=== PATIENT | female | born 1930 | race African-American/Black ===

== ENCOUNTER 2018-09-28 20:02 | Emergency (ER) | payer OTHER | END 2018-09-28 23:12 | disposition home or self-care (01) | LOC: JER 20:02 ==

== ENCOUNTER 2019-04-29 00:11 | Inpatient (IN) | payer OTHER ==
--- NOTE | 2019-04-29 00:23 | PDOC ---
History of Present Illness - General Stated Complaint: RT HIP PAIN Time Seen by Provider: 04/29/19 00:23 - History of Present Illness Initial Comments: 04/29/19 00:24 88 year old female with past medical history significant for CAD s/p stent, HTN and arthritis (to multiple joints), colostomy bag who presents with L thigh and hip pain that started this AM when she woke up the patient reports that she took tramadol this AM and she felt better. However the pain worsened prior to arrival. She denies any back pain, back trauma, denies shooting like pain to the legs. She has no weakness, numbness or tingling. ROS GENERAL/CONSTITUTIONAL: No fever or chills. No weakness. HEAD, EYES, EARS, NOSE AND THROAT: No sore throat. CARDIOVASCULAR: No chest pain or shortness of breath RESPIRATORY: No cough, wheezing, or hemoptysis. GASTROINTESTINAL: No nausea, vomiting, diarrhea or constipation. GENITOURINARY: No dysuria, frequency, or change in urination. MUSCULOSKELETAL: + joint or muscle swelling or pain. No neck or back pain. SKIN: No rash NEUROLOGIC: No headache, vertigo, loss of consciousness, or change in strength/ sensation. PE GENERAL: Awake, alert, and fully oriented, in no acute distress HEAD: No signs of trauma, normocephalic, atraumatic EYES: EOMI, sclera anicteric, conjunctiva clear ENT: oropharynx clear without exudates. Moist mucosa NECK: Normal ROM, supple LUNGS: No distress, speaks full sentences, clear to auscultation bilaterally HEART: Regular rate and rhythm, normal S1 and S2, no murmurs, rubs or gallops, peripheral pulses normal and equal bilaterally. ABDOMEN: Soft, nontender, No guarding, no rebound. No masses EXTREMITIES : Normal inspection, + L hip tenderness to palpation, worse with ranging NEUROLOGICAL: Cranial nerves II through XII grossly intact. Normal speech, no focal sensorimotor deficits SKIN: Warm, Dry, normal turgor, no rashes or lesions noted MDM DDX including but not limited to: r/o fx vs dislocation ED Course: patient with L hip pain morphine dosed labs wnl CT pelvis - osteoarthritis of the hips, no acute fx Alaina Myles, PGY2 Emergency Medicine Past History - Past Medical History Allergies/Adverse Reactions: Allergies Allergy/AdvReac Type Severity Reaction Status Date / Time No Known Allergies Allergy Verified 03/17/17 17:45 Home Medications: Ambulatory Orders Aspirin [Ecotrin] 81 mg PO DAILY 08/21/15 Furosemide [Lasix -] 40 mg PO DAILY 08/21/15 Lisinopril [Prinivil] 20 mg PO DAILY 08/21/15 Omeprazole [Prilosec] 20 mg PO DAILY 08/21/15 Ondansetron [Zofran *Odt*] 4 mg SL PRN PRN #14 od.tablet 08/21/15 Tramadol HCl/Acetaminophen [Tramadol-Acetaminophn 37.5-325] 1 each PO QID PRN Pantoprazole Sodium [Protonix] 40 mg PO DAILY #30 tablet. 12/16/15 Escitalopram Oxalate [Lexapro -] 5 mg PO DAILY 09/28/18 Lidocaine 5% Patch [Lidoderm Patch -] 1 patch TP DAILY #30 patch 09/28/18 Anemia: No Asthma: No Cancer: No Cardiac Disorders: Yes CVA: No COPD: No CHF: No Dementia: No Diabetes: Yes GI Disorders: Yes (COLOSTOMY D/T CHILDBIRTH YEARS AGO.) Disorders: No HTN: Yes Hypercholesterolemia: Yes Liver Disease: No Seizures: No Thyroid Disease: No - Surgical History Abdominal Surgery: Yes (COLOSTOMY.) Appendectomy: No Cardiac Surgery: Yes (STENT.) Cholecystectomy: No Lung Surgery: No Neurologic Surgery: No Orthopedic Surgery: No - Psycho Social/Smoking Cessation Hx Smoking History: Never smoked Have you smoked in the past 12 months: No Hx Alcohol Use: No Drug/Substance Use Hx: No Substance Use Type: None Hx Substance Use Treatment: No ED Treatment Course - LABORATORY CBC & Chemistry Diagram: 04/29/19 01:20 04/29/19 01:20 Discharge - Follow up/Referral Referrals: Sabino Garzon MD [Primary Care Provider] - - Patient Discharge Instructions - Post Discharge Activity
--- NOTE | 2019-04-29 00:25 | PDOC ---
Attending Attestation - Resident Resident Name: Alaina Myles - ED Attending Attestation I have performed the following: I have examined & evaluated the patient, The case was reviewed & discussed with the resident, I agree w/resident's findings & plan - HPI HPI: 04/29/19 01:01 see resident hpi - Physicial Exam PE: 04/29/19 01:01 agree with resident exam - Medical Decision Making 04/29/19 01:01 88-year-old female with history of lumbar disease now with severe atraumatic right hip pain radiating down the leg Plan for opiate analgesics CT scan of the lumbar spine and pelvis Will admit pending results for further evaluation by physical therapy due to inability to ambulate
[2019-04-29] MEDS ORDERED: morphine CARPU-JECT 2 MG/1 ML DISP.SYRIN SQ ONE (00:31)
[2019-04-29] MEDS ORDERED: MORPHINE SULFATE 2 MG/ML VIAL ONE ×3 (00:58→09:37)
[2019-04-29] MEDS ORDERED: LIDOCAINE 5% TOPICAL PATCH TP ONE (01:03)
[2019-04-29] MEDS ORDERED: morphine CARPU-JECT 2 MG/1 ML DISP.SYRIN IVPUSH ONE (01:25)
[2019-04-29 01:30] LABS: BASO % 0.7 % (0-2.0); EOS % 1.2 % (0-4.5); HEMATOCRIT 37.8 % (32.4-45.2); HEMOGLOBIN 12.6 GM/dL (10.7-15.3); LYMPH % 28.9 % (8-40); MCH 28.1 pg (25.7-33.7); MCHC 33.3 g/dl (32.0-36.0); MEAN CELL VOLUME 84.5 fl (80-96); MEAN PLT VOLUME 7.9 fl (7.5-11.1); MONO % 9.9 % (3.8-10.2); NEUT % 59.3 % (42.8-82.8); PLATELET COUNT 261 K/MM3 (134-434); RBC 4.47 M/mm3 (3.60-5.2); RDW 14.2 % (11.6-15.6); WHITE BLOOD COUNT 8.6 K/mm3 (4.0-10.0)
[2019-04-29 01:55] LABS: ALBUMIN 3.4 g/dl (3.4-5.0); BILIRUBIN,TOTAL 0.4 mg/dL (0.2-1); BLOOD UREA NITROGEN 16.5 mg/dL (7-18); CREATININE 1.1 mg/dL (0.55-1.3); POTASSIUM 4.6 mmol/L (3.5-5.1); TOT PROT 7.5 g/dl (6.4-8.2)
[2019-04-29] MEDS ORDERED: traMADol HCL 50 MG TABLET PO ONE (04:21)
[2019-04-29] MEDS ORDERED: traMADol HCL 50 MG TABLET ONE (04:43)
[2019-04-29] MEDS ORDERED: LIDOCAINE 5% TOPICAL PATCH ONE (06:53)
[2019-04-29] MEDS ORDERED: morphine CARPU-JECT 2 MG/1 ML DISP.SYRIN IVPUSH PRN (09:31)
[2019-04-29] MEDS: LIDOCAINE 5% TOPICAL PATCH TP SCH (09:47)
[2019-04-29] MEDS ORDERED: ASPIRIN 81 MG CHEWABLE TABLETS ONE (10:43)
[2019-04-29] MEDS ORDERED: LISINOPRIL 20 MG TABLET (FP) ONE (10:43)
[2019-04-29] MEDS ORDERED: ESCITALOPRAM OXALATE 10 MG TABLET (FP) ONE (10:43)
[2019-04-29] MEDS ORDERED: HEPARIN NA (PORCINE) 5,000 UNITS/ML 1ML VIAL ONE (10:43)
[2019-04-29] MEDS ORDERED: FUROSEMIDE 40 MG TABLET (FP) ONE (10:43)
[2019-04-29] MEDS ORDERED: PANTOPRAZOLE 40 MG TABLET (FP) ONE (10:44)
[2019-04-29] MEDS: ASPIRIN COATED 81 MG TABLET.EC PO SCH (10:50)
[2019-04-29] MEDS: ESCITALOPRAM OXALATE 10 MG TABLET (FP) PO SCH (10:50)
[2019-04-29] MEDS: HEPARIN NA (PORCINE) 5,000 UNITS/ML 1ML VIAL SQ SCH ×2 (10:50→22:31)
[2019-04-29] MEDS: FUROSEMIDE 40 MG TABLET (FP) PO SCH (10:50)
[2019-04-29] MEDS: PANTOPRAZOLE 40 MG TABLET (FP) PO SCH (10:51)
[2019-04-29] MEDS: LISINOPRIL 20 MG TABLET (FP) PO SCH (10:51)
--- NOTE | 2019-04-29 11:19 | EKG ---
Test Reason : Blood Pressure : / mmHG Vent. Rate : 058 BPM Atrial Rate : 058 BPM P-R Int : 138 ms QRS Dur : 068 ms QT Int : 436 ms P-R-T Axes : 000 005 029 degrees QTc Int : 428 ms SINUS BRADYCARDIA OTHERWISE NORMAL ECG WHEN COMPARED WITH ECG OF 15-DEC-2015 23:13, NO SIGNIFICANT CHANGE WAS FOUND Confirmed by DEL VIEYRA MD ([id number]) on 04/29/2019 11:19:40 AM Referred By: Confirmed By:DEL VIEYRA MD
[2019-04-29 13:16] VITALS: BMI 35.9
--- NOTE | 2019-04-29 13:52 | CON.ORTH ---
Consult Reason for Consultation:: LBP, right hip pain - Past Medical History Cardio/Vascular: Yes: CAD, HTN ...: No - Past Surgical History Past Surgical History: Yes: Colostomy - Alcohol/Substance Use Hx Alcohol Use: No - Smoking History Smoking history: Never smoked Have you smoked in the past 12 months: No Home Medications - Allergies Allergies/Adverse Reactions: Allergies Allergy/AdvReac Type Severity Reaction Status Date / Time No Known Allergies Allergy Verified 03/17/17 17:45 - Home Medications Home Medications: Ambulatory Orders Aspirin [Ecotrin] 81 mg PO DAILY 08/21/15 Furosemide [Lasix -] 40 mg PO DAILY 08/21/15 Lisinopril [Prinivil] 20 mg PO DAILY 08/21/15 Omeprazole [Prilosec] 20 mg PO DAILY 08/21/15 Ondansetron [Zofran *Odt*] 4 mg SL PRN PRN #14 od.tablet 08/21/15 Tramadol HCl/Acetaminophen [Tramadol-Acetaminophn 37.5-325] 1 each PO QID PRN Pantoprazole Sodium [Protonix] 40 mg PO DAILY #30 tablet. 12/16/15 Lidocaine 5% Patch [Lidoderm Patch -] 1 patch TP DAILY #30 patch 09/28/18 Physical Exam for Ortho Vital Signs: Vital Signs Temperature 97.4 F L 04/29/19 12:58 Pulse Rate 62 04/29/19 12:58 Respiratory Rate 20 04/29/19 12:58 Blood Pressure 138/66 04/29/19 12:58 O2 Sat by Pulse Oximetry (%) 98 04/29/19 06:58 Labs: CBC, BMP 04/29/19 01:20 04/29/19 01:20 - Lower Extremity Hip: Yes: Right, Decreased ROM, Pain, Swelling, Other (+ ttp LS spine, equal limb lengths, + slr, nvi) Imaging - Results X-ray: Image Reviewed Cat Scan: Report Reviewed, Image Reviewed Assessment/Plan 88 year old female with past medical history significant for CAD s/p stent, HTN and arthritis (to multiple joints), colostomy bag who presents with right LB, thigh and hip pain that started 1 day ago. She states that she was in the kitchen when she had a sudden onset of pain in her lower back that radiated down her right leg to her foot. Pt denies any injury or trauma. Has h/o LS issues. c/o pain radiating down right LE and numbness into her toes. Denies any bowel/bladder dysfunction. a/p LS multi-level central canal stenosis, L4-5 spondylolisthesis, right hip djd d/w with pt and family in detail appears more LS spine in nature recommend neurosurgery consult PT, wbat pain control right hip has severe grade 4 djd, would require THR but at this time pain more specific to LS spine d/w Dr. Gutierrez
[2019-04-29] MEDS: MORPHINE SULFATE 2 MG/ML VIAL IVPUSH PRN (15:52)
--- NOTE | 2019-04-29 19:13 | HP ---
Admitting History and Physical - Admission History of Present Illness: Pt is a 88 year old female with PMH significant for CAD s/p stent, HTN, chronic lower back pain, GERD and arthritis (to multiple joints). Pt presented to the ER with lower back pain wc radiated to rt hip and down rt leg started since am. She states that she was in the kitchen when she had a sudden onset of pain in her lower back that radiated down her right leg to her foot. Pt denies any injury or trauma. Has h/o LS issues. c/o pain radiating down right LE and numbness into her toes. Denies any bowel/bladder dysfunction. In ER pt had ct scan LS spine wc showed multi-level central canal stenosis, L4-5 spondylolisthesis, right hip djd. - Past Medical History Cardiovascular: Yes: CAD, HTN Gastrointestinal: Yes: GERD ...: No Musculoskeletal: Yes: Osteoarthritis - Past Surgical History Past Surgical History: Yes: Colostomy - Smoking History Smoking history: Never smoked Have you smoked in the past 12 months: No - Alcohol/Substance Use Hx Alcohol Use: No Home Medications - Allergies Allergies/Adverse Reactions: Allergies Allergy/AdvReac Type Severity Reaction Status Date / Time No Known Allergies Allergy Verified 03/17/17 17:45 - Home Medications Home Medications: Ambulatory Orders Aspirin [Ecotrin] 81 mg PO DAILY 08/21/15 Furosemide [Lasix -] 40 mg PO DAILY 08/21/15 Lisinopril [Prinivil] 20 mg PO DAILY 08/21/15 Omeprazole [Prilosec] 20 mg PO DAILY 08/21/15 Ondansetron [Zofran *Odt*] 4 mg SL PRN PRN #14 od.tablet 08/21/15 Tramadol HCl/Acetaminophen [Tramadol-Acetaminophn 37.5-325] 1 each PO QID PRN Pantoprazole Sodium [Protonix] 40 mg PO DAILY #30 tablet. 12/16/15 Lidocaine 5% Patch [Lidoderm Patch -] 1 patch TP DAILY #30 patch 09/28/18 Family Medical History Family History: Unremarkable Review of Systems - Review of Systems Constitutional: reports: No Symptoms Eyes: reports: No Symptoms HENT: reports: No Symptoms Neck: reports: No Symptoms Cardiovascular: reports: Other Respiratory: reports: No Symptoms Gastrointestinal: reports: No Symptoms Musculoskeletal: reports: Back Pain, Extremity Pain, Joint Pain Physical Examination Vital Signs: Vital Signs Temperature 97.4 F L 04/29/19 12:58 Pulse Rate 62 04/29/19 12:58 Respiratory Rate 20 04/29/19 12:58 Blood Pressure 138/66 04/29/19 12:58 O2 Sat by Pulse Oximetry (%) 98 04/29/19 06:58 Constitutional: Yes: Well Nourished Eyes: Yes: WNL HENT: Yes: WNL Neck: Yes: WNL, Supple Cardiovascular: Yes: WNL, Regular Rate and Rhythm Respiratory: Yes: WNL, Regular, CTA Bilaterally Gastrointestinal: Yes: WNL, Normal Bowel Sounds, Soft, Abdomen, Obese, Other ((+ ) colostomy) Labs: CBC, BMP 04/29/19 01:20 04/29/19 01:20 Problem List - Problems (1) Intractable back pain Assessment/Plan: Cont pain meds NSG/pain management Consult PT eval Code(s): M54.9 - DORSALGIA, UNSPECIFIED (2) GERD (gastroesophageal reflux disease) Assessment/Plan: Cont protonix Code(s): K21.9 - GASTRO-ESOPHAGEAL REFLUX DISEASE WITHOUT ESOPHAGITIS (3) Degenerative lumbar spinal stenosis Code(s): M48.061 - SPINAL STENOSIS, LUMBAR REGION WITHOUT NEUROGENIC MATEO (4) HTN (hypertension) Assessment/Plan: BP stable Cont asa/lasix Code(s): I10 - ESSENTIAL (PRIMARY) HYPERTENSION (5) Osteoarthritis Code(s): M19.90 - UNSPECIFIED OSTEOARTHRITIS, UNSPECIFIED SITE (6) CAD (coronary artery disease) Code(s): I25.10 - ATHSCL HEART DISEASE OF [place] CORONARY ARTERY W/O ANG PCTRS
[2019-04-29] MEDS ORDERED: MORPHINE SULFATE 2 MG/ML VIAL IVPUSH ONE (20:15)
[2019-04-29] MEDS ORDERED: PT OWN MED DRAWER 7, Y5N ONE (22:09)
[2019-04-29] MEDS: CYCLOBENZAPRINE HCL 5 MG TABLET PO SCH (22:31)
[2019-04-29] MEDS: LIDOCAINE PATCH REMOVAL MC SCH (22:44)
[2019-04-30] MEDS: MORPHINE SULFATE 2 MG/ML VIAL IVPUSH PRN ×2 (02:59→10:00)
[2019-04-30] MEDS: CYCLOBENZAPRINE HCL 5 MG TABLET PO SCH ×3 (06:57→22:12)
[2019-04-30 07:43] LABS: BASO % 1.1 % (0-2.0); EOS % 1.8 % (0-4.5); HEMATOCRIT 36.9 % (32.4-45.2); HEMOGLOBIN 12.7 GM/dL (10.7-15.3); LYMPH % 40.2 % (8-40); MCH 28.6 pg (25.7-33.7); MCHC 34.3 g/dl (32.0-36.0); MEAN CELL VOLUME 83.2 fl (80-96); MEAN PLT VOLUME 7.9 fl (7.5-11.1); MONO % 9.7 % (3.8-10.2); NEUT % 47.2 % (42.8-82.8); PLATELET COUNT 245 K/MM3 (134-434); RBC 4.43 M/mm3 (3.60-5.2); RDW 14.3 % (11.6-15.6); WHITE BLOOD COUNT 7.1 K/mm3 (4.0-10.0)
[2019-04-30 08:15] LABS: ALBUMIN 3.1 g/dl (3.4-5.0); BILIRUBIN,TOTAL 0.5 mg/dL (0.2-1); BLOOD UREA NITROGEN 13.2 mg/dL (7-18); CALCIUM 8.5 mg/dL (8.5-10.1)
[2019-04-30] MEDS: PANTOPRAZOLE 40 MG TABLET (FP) PO SCH (09:57)
[2019-04-30] MEDS: LISINOPRIL 20 MG TABLET (FP) PO SCH (09:57)
[2019-04-30] MEDS: ESCITALOPRAM OXALATE 10 MG TABLET (FP) PO SCH (09:58)
[2019-04-30] MEDS: FUROSEMIDE 40 MG TABLET (FP) PO SCH (09:59)
[2019-04-30] MEDS: HEPARIN NA (PORCINE) 5,000 UNITS/ML 1ML VIAL SQ SCH ×2 (09:59→22:12)
[2019-04-30] MEDS: LIDOCAINE 5% TOPICAL PATCH TP SCH (09:59)
[2019-04-30] MEDS: ASPIRIN COATED 81 MG TABLET.EC PO SCH (10:14)
--- NOTE | 2019-04-30 14:09 | CONSULT ---
Consult - text type - Consultation Consultation Note: NEUROSURGERY CONSULTATION Brandee Davila is an 88 year old female with a long history of back and leg pain who experienced an exacerbation on Monday morning without any significant associated traumatic incident. The patient is complaining of low back and Right gluteal pain which radiates down her Right leg. She is unable to bear weight or sit upright without increasing her pain. Evaluation of her hips suggests some degree of osteoarthritis, however, her pain appears to be of a primarily spinal etiology. Lumbar CT demonstrates multilevel degenerative changes with facet and ligamentum flavum hypertrophy and disc bulging resulting in Lumbar degenerative scoliosis with spondylosis and Grade 2 spondylolisthesis of L4 on L5 with a high slip angle at L5S1. There is suggestion of acute disc herniation at L45, however, this would be best evaluated with MRI. There are no bowel and bladder changes. This patient may benefit from Lumbar CESAR as an initial treatment. If her symptoms persist despite this, MRI Lumbar without contrast may be considered. Given her advanced age, surgical intervention would be restricted to failure to respond to a conservative regimen or progression to bowel/bladder dysfunction or intractable pain. Most likely focal decompression of the acute nerve root compression may be considered prior to multilevel reconstructive options. Will follow.
[2019-04-30] MEDS ORDERED: FENTANYL PATCH WASTE TD PRN (16:26)
[2019-04-30] MEDS: fentaNYL 25mcg/hr PATCH.TD72 TD SCH (17:03)
--- NOTE | 2019-04-30 18:41 | PN ---
Progress Note, Physician History of Present Illness: Pt unable to ambulate due to pain - Current Medication List Current Medications: Active Medications Aspirin (Ecotrin -) 81 mg PO DAILY [facility] Last Admin: 04/30/19 10:14 Dose: 81 mg Cyclobenzaprine HCl (Cyclobenzaprine Hcl) 5 mg PO TID [facility] Last Admin: 04/30/19 14:06 Dose: 5 mg Escitalopram Oxalate (Lexapro -) 5 mg PO DAILY [facility] Last Admin: 04/30/19 09:58 Dose: 5 mg Fentanyl (Duragesic 25mcg Patch -) 1 patch TD Q72H [facility] Last Admin: 04/30/19 17:03 Dose: 1 patch Furosemide (Lasix -) 40 mg PO DAILY [facility] Last Admin: 04/30/19 09:59 Dose: 40 mg Heparin Sodium (Porcine) (Heparin -) 5,000 unit SQ BID [facility] Last Admin: 04/30/19 09:59 Dose: 5,000 unit Lidocaine (Lidoderm Patch -) 1 patch TP DAILY [facility] Last Admin: 04/30/19 09:59 Dose: 1 patch Lisinopril (Prinivil) 20 mg PO DAILY [facility] Last Admin: 04/30/19 09:57 Dose: 20 mg Miscellaneous (Lidoderm Patch Removal) 1 each MC DAILY@2200 [facility] Last Admin: 04/29/19 22:44 Dose: 1 each Miscellaneous (Duragesic Patch Waste) 1 each TD PRN PRN PRN Reason: WASTE Pantoprazole Sodium (Protonix -) 40 mg PO DAILY [facility] Last Admin: 04/30/19 09:57 Dose: 40 mg Tramadol HCl (Ultram -) 50 mg PO Q6H PRN PRN Reason: PAIN LEVEL 6-10 - Objective Vital Signs: Vital Signs Temperature 98.1 F 04/30/19 05:45 Pulse Rate 72 04/30/19 09:00 Respiratory Rate 18 04/30/19 09:00 Blood Pressure 120/68 04/30/19 09:00 O2 Sat by Pulse Oximetry (%) 98 04/30/19 05:00 Constitutional: Yes: Well Nourished, Obese HENT: Yes: WNL Neck: Yes: WNL, Supple Cardiovascular: Yes: WNL, Regular Rate and Rhythm Respiratory: Yes: WNL, Regular, CTA Bilaterally Gastrointestinal: Yes: WNL, Normal Bowel Sounds, Soft, Abdomen, Obese, Other ((+ ) colostomy) Edema: No Labs: CBC, BMP 04/30/19 06:42 04/30/19 06:42 Problem List - Problems (1) Intractable back pain Assessment/Plan: Cont pain meds NSG consult noted Pain management Consult Possible epidural injection d/w pt and family PT eval Code(s): M54.9 - DORSALGIA, UNSPECIFIED (2) Degenerative lumbar spinal stenosis Code(s): M48.061 - SPINAL STENOSIS, LUMBAR REGION WITHOUT NEUROGENIC AMTEO (3) GERD (gastroesophageal reflux disease) Assessment/Plan: Cont protonix Code(s): K21.9 - GASTRO-ESOPHAGEAL REFLUX DISEASE WITHOUT ESOPHAGITIS (4) HTN (hypertension) Assessment/Plan: BP stable Cont asa/lasix Code(s): I10 - ESSENTIAL (PRIMARY) HYPERTENSION (5) Osteoarthritis Code(s): M19.90 - UNSPECIFIED OSTEOARTHRITIS, UNSPECIFIED SITE (6) CAD (coronary artery disease) Code(s): I25.10 - ATHSCL HEART DISEASE OF [place] CORONARY ARTERY W/O ANG PCTRS
[2019-04-30] MEDS: traMADol HCL 50 MG TABLET PO PRN (18:52)
[2019-04-30] MEDS: LIDOCAINE PATCH REMOVAL MC SCH (22:12)
[2019-05-01] MEDS: traMADol HCL 50 MG TABLET PO PRN ×4 (00:43→20:22)
[2019-05-01] MEDS: CYCLOBENZAPRINE HCL 5 MG TABLET PO SCH ×3 (05:46→22:04)
[2019-05-01] MEDS: LISINOPRIL 20 MG TABLET (FP) PO SCH (10:29)
[2019-05-01] MEDS: FUROSEMIDE 40 MG TABLET (FP) PO SCH (10:30)
[2019-05-01] MEDS: ASPIRIN COATED 81 MG TABLET.EC PO SCH (10:30)
[2019-05-01] MEDS: HEPARIN NA (PORCINE) 5,000 UNITS/ML 1ML VIAL SQ SCH (10:30)
[2019-05-01] MEDS: ESCITALOPRAM OXALATE 10 MG TABLET (FP) PO SCH (10:30)
[2019-05-01] MEDS: PANTOPRAZOLE 40 MG TABLET (FP) PO SCH (10:30)
[2019-05-01] MEDS: LIDOCAINE 5% TOPICAL PATCH TP SCH (10:31)
--- NOTE | 2019-05-01 19:19 | PN ---
Progress Note, Physician History of Present Illness: Pt still w/ intractable back pain - Current Medication List Current Medications: Active Medications Aspirin (Ecotrin -) 81 mg PO DAILY [facility] Last Admin: 05/01/19 10:30 Dose: 81 mg Cyclobenzaprine HCl (Cyclobenzaprine Hcl) 5 mg PO TID [facility] Last Admin: 05/01/19 13:52 Dose: 5 mg Escitalopram Oxalate (Lexapro -) 5 mg PO DAILY [facility] Last Admin: 05/01/19 10:30 Dose: 5 mg Fentanyl (Duragesic 25mcg Patch -) 1 patch TD Q72H [facility] Last Admin: 04/30/19 17:03 Dose: 1 patch Furosemide (Lasix -) 40 mg PO DAILY [facility] Last Admin: 05/01/19 10:30 Dose: 40 mg Heparin Sodium (Porcine) (Heparin -) 5,000 unit SQ BID [facility] Last Admin: 05/01/19 10:30 Dose: 5,000 unit Lidocaine (Lidoderm Patch -) 1 patch TP DAILY [facility] Last Admin: 05/01/19 10:31 Dose: 1 patch Lisinopril (Prinivil) 20 mg PO DAILY [facility] Last Admin: 05/01/19 10:29 Dose: 20 mg Miscellaneous (Lidoderm Patch Removal) 1 each MC DAILY@2200 [facility] Last Admin: 04/30/19 22:12 Dose: 1 each Miscellaneous (Duragesic Patch Waste) 1 each TD PRN PRN PRN Reason: WASTE Pantoprazole Sodium (Protonix -) 40 mg PO DAILY [facility] Last Admin: 05/01/19 10:30 Dose: 40 mg Tramadol HCl (Ultram -) 50 mg PO Q6H PRN PRN Reason: PAIN LEVEL 6-10 Last Admin: 05/01/19 13:52 Dose: 50 mg - Objective Vital Signs: Vital Signs Temperature 97.9 F 05/01/19 14:08 Pulse Rate 76 05/01/19 14:08 Respiratory Rate 18 05/01/19 05:40 Blood Pressure 120/74 05/01/19 14:08 O2 Sat by Pulse Oximetry (%) 98 05/01/19 13:00 Neck: Yes: WNL, Supple Cardiovascular: Yes: WNL, Regular Rate and Rhythm Respiratory: Yes: WNL, Regular, CTA Bilaterally Gastrointestinal: Yes: WNL, Normal Bowel Sounds, Soft Labs: CBC, BMP 04/30/19 06:42 04/30/19 06:42 Problem List - Problems (1) Intractable back pain Assessment/Plan: Pain meds being adjusted Fentanyl added Cont tramadol/flexeril/lidocaine patch NSG consult noted Pain management consult ?Epidural injection Pt unable to ambulate due to pain Cont PT. Code(s): M54.9 - DORSALGIA, UNSPECIFIED (2) HTN (hypertension) Assessment/Plan: BP stable Cont asa/lasix Code(s): I10 - ESSENTIAL (PRIMARY) HYPERTENSION (3) Chronic congestive heart failure Assessment/Plan: Cont lasix Code(s): I50.9 - HEART FAILURE, UNSPECIFIED (4) Osteoarthritis Code(s): M19.90 - UNSPECIFIED OSTEOARTHRITIS, UNSPECIFIED SITE
--- NOTE | 2019-05-01 20:12 | CONSULT ---
Consult Consult Specialty:: Pain Management Referred by:: Dr. Smith Reason for Consultation:: Back pain - History of Present Illness Chief Complaint: Back pain radiating to RT leg History of Present Illness: 88 yr old female with acute onset of Low Back pain radiatig to Rt leg with numbness and tingling. She has difficulty n ambulation and doing ADLs . She was evaluated by spine surgeon. He pain is 8/10 sleep - inadequate. No bowel/bladder issues. MRI - reviewed - History Source History Provided By: Patient Limitations to Obtaining History: No Limitations - Past Medical History Cardio/Vascular: Yes: CAD, HTN ...: No Musculoskeletal: Yes: Chronic low back pain, Other (multiple joint OA ) - Past Surgical History Past Surgical History: Yes: Cholecystectomy, Colostomy, Stent - Alcohol/Substance Use Hx Alcohol Use: No - Smoking History Smoking history: Never smoked Have you smoked in the past 12 months: No Home Medications - Allergies Allergies/Adverse Reactions: Allergies Allergy/AdvReac Type Severity Reaction Status Date / Time No Known Allergies Allergy Verified 03/17/17 17:45 - Home Medications Home Medications: Ambulatory Orders Aspirin [Ecotrin] 81 mg PO DAILY 08/21/15 Furosemide [Lasix -] 40 mg PO DAILY 08/21/15 Lisinopril [Prinivil] 20 mg PO DAILY 08/21/15 Omeprazole [Prilosec] 20 mg PO DAILY 08/21/15 Ondansetron [Zofran *Odt*] 4 mg SL PRN PRN #14 od.tablet 08/21/15 Tramadol HCl/Acetaminophen [Tramadol-Acetaminophn 37.5-325] 1 each PO QID PRN Pantoprazole Sodium [Protonix] 40 mg PO DAILY #30 tablet. 12/16/15 Lidocaine 5% Patch [Lidoderm Patch -] 1 patch TP DAILY #30 patch 09/28/18 Review of Systems - Review of Systems Constitutional: reports: No Symptoms Eyes: reports: No Symptoms HENT: reports: No Symptoms Neck: reports: No Symptoms Cardiovascular: reports: No Symptoms Respiratory: reports: No Symptoms Gastrointestinal: reports: No Symptoms Genitourinary: reports: No Symptoms Musculoskeletal: reports: Back Pain, Joint Pain Integumentary: reports: No Symptoms Neurological: reports: No Symptoms, Numbness, Parasthesia Endocrine: reports: No Symptoms Hematology/Lymphatic: reports: No Symptoms Psychiatric: reports: No Symptoms Pain Intensity: 8 Physical Exam Vital Signs: Vital Signs Temperature 97.9 F 05/01/19 14:08 Pulse Rate 76 05/01/19 14:08 Respiratory Rate 18 05/01/19 05:40 Blood Pressure 120/74 05/01/19 14:08 O2 Sat by Pulse Oximetry (%) 98 05/01/19 13:00 Constitutional: Yes: Well Nourished Eyes: Yes: WNL HENT: Yes: WNL Neck: Yes: WNL Respiratory: Yes: WNL Gastrointestinal: Yes: WNL Musculoskeletal: Yes: Back Pain, Muscle Pain, Other (radicular pain) Extremities: Yes: WNL Edema: No Neurological: Yes: WNL ...Motor Strength: WNL Labs: CBC, BMP 04/30/19 06:42 04/30/19 06:42 Current Medications Generic Name Dose Route Start Last Admin Trade Name Freq PRN Reason Stop Dose Admin Aspirin 81 mg 04/29/19 10:00 05/01/19 10:30 Ecotrin - PO 81 mg DAILY [facility] Administration Cyclobenzaprine HCl 5 mg 04/29/19 22:00 05/01/19 13:52 Cyclobenzaprine Hcl PO 5 mg TID [facility] Administration Escitalopram Oxalate 5 mg 04/29/19 10:00 05/01/19 10:30 Lexapro - PO 5 mg DAILY [facility] Administration Fentanyl 1 patch 04/30/19 16:30 04/30/19 17:03 Duragesic 25mcg Patch - TD 1 patch Q72H [facility] Administration Furosemide 40 mg 04/29/19 10:00 05/01/19 10:30 Lasix - PO 40 mg DAILY [facility] Administration Heparin Sodium (Porcine) 5,000 unit 04/29/19 10:00 05/01/19 10:30 Heparin - SQ 5,000 unit BID [facility] Administration Lidocaine 1 patch 04/29/19 10:00 05/01/19 10:31 Lidoderm Patch - TP 1 patch DAILY [facility] Administration Lisinopril 20 mg 04/29/19 10:00 05/01/19 10:29 Prinivil PO 20 mg DAILY [facility] Administration Miscellaneous 1 each 04/29/19 22:00 04/30/19 22:12 Lidoderm Patch Removal MC 1 each DAILY@2200 [facility] Administration Miscellaneous 1 each 04/30/19 16:26 Duragesic Patch Waste TD PRN PRN WASTE Pantoprazole Sodium 40 mg 04/29/19 10:00 05/01/19 10:30 Protonix - PO 40 mg DAILY [facility] Administration Tramadol HCl 50 mg 04/30/19 18:40 05/01/19 13:52 Ultram - PO 50 mg Q6H PRN Administration PAIN LEVEL 6-10 Imaging - Results Cat Scan: Report Reviewed Problem List - Problems (1) Degenerative lumbar spinal stenosis Assessment/Plan: 1. Discussed in detail with patient and Her grand daughter and answered all her questions. 1. continue current care 2. Hold Aspirin and Heparine 3. NPO from Midnight 4. Scheduled for Lumbar epidural and Facet injection on Right side. 5. Patient resume her medication and regualr diet after spinal procedure. 6. D/C Fentanyl patch at the time of discharge. Please call me if any questions at [phone] Thanks for your kind referral. Problems reviewed: Yes Code(s): M48.061 - SPINAL STENOSIS, LUMBAR REGION WITHOUT NEUROGENIC MATEO
[2019-05-01] MEDS: LIDOCAINE PATCH REMOVAL MC SCH (22:04)
[2019-05-02] MEDS: traMADol HCL 50 MG TABLET PO PRN ×2 (01:59→18:20)
[2019-05-02] MEDS: CYCLOBENZAPRINE HCL 5 MG TABLET PO SCH ×3 (05:42→22:33)
[2019-05-02] MEDS ORDERED: LIDOCAINE HCL 1%, 10 MG/ML (20ML VIAL) ONE (09:55)
[2019-05-02] MEDS ORDERED: BETAMET ACET/BETAMET NA PH 30 MG/5 ML VIAL ONE (09:56)
[2019-05-02] MEDS ORDERED: BUPIVACAINE HCL/PF 0.25% (2.5MG/ML) 10 ML VIAL ONE (09:56)
[2019-05-02] MEDS ORDERED: MIDAZOLAM HCL 2 MG/2 ML SINGLE DOSE VIAL ONE (10:14)
[2019-05-02] MEDS ORDERED: PROPOFOL 20 ML ONE (10:27)
[2019-05-02] MEDS ORDERED: LIDOCAINE HCL/PF 2% SDV 5ML VIAL ONE (10:27)
[2019-05-02] MEDS ORDERED: LIDOCAINE HCL 1%, 10 MG/ML (50 mL VIAL) IJ ONE (10:34)
[2019-05-02] MEDS ORDERED: BUPIVACAINE HCL/PF 0.25% (2.5MG/ML) 10 ML VIAL IJ ONE ×2 (10:38)
[2019-05-02] MEDS ORDERED: IOHEXOL 180 MG/1 ML ML IJ ONE ×3 (10:38)
[2019-05-02] MEDS ORDERED: BETAMET ACET/BETAMET NA PH 30 MG/5 ML VIAL IJ ONE ×2 (10:42)
[2019-05-02] MEDS: PANTOPRAZOLE 40 MG TABLET (FP) PO SCH (13:31)
[2019-05-02] MEDS: ASPIRIN COATED 81 MG TABLET.EC PO SCH (13:32)
[2019-05-02] MEDS: LISINOPRIL 20 MG TABLET (FP) PO SCH (13:32)
[2019-05-02] MEDS: LIDOCAINE 5% TOPICAL PATCH TP SCH (13:32)
[2019-05-02] MEDS: ESCITALOPRAM OXALATE 10 MG TABLET (FP) PO SCH (13:32)
[2019-05-02] MEDS: FUROSEMIDE 40 MG TABLET (FP) PO SCH (13:37)
[2019-05-02] MEDS: HEPARIN NA (PORCINE) 5,000 UNITS/ML 1ML VIAL SQ SCH (22:33)
[2019-05-02] MEDS: LIDOCAINE PATCH REMOVAL MC SCH (22:33)
--- NOTE | 2019-05-02 22:34 | PN ---
Progress Note, Physician History of Present Illness: Pt tolerated procedure - Current Medication List Current Medications: Active Medications Aspirin (Ecotrin -) 81 mg PO DAILY [facility] Last Admin: 05/02/19 13:32 Dose: 81 mg Cyclobenzaprine HCl (Cyclobenzaprine Hcl) 5 mg PO TID [facility] Last Admin: 05/02/19 16:02 Dose: 5 mg Escitalopram Oxalate (Lexapro -) 5 mg PO DAILY [facility] Last Admin: 05/02/19 13:32 Dose: 5 mg Fentanyl (Duragesic 25mcg Patch -) 1 patch TD Q72H [facility] Last Admin: 04/30/19 17:03 Dose: 1 patch Furosemide (Lasix -) 40 mg PO DAILY [facility] Last Admin: 05/02/19 13:37 Dose: Not Given Heparin Sodium (Porcine) (Heparin -) 5,000 unit SQ BID [facility] Last Admin: 05/01/19 10:30 Dose: 5,000 unit Lidocaine (Lidoderm Patch -) 1 patch TP DAILY [facility] Last Admin: 05/02/19 13:32 Dose: 1 patch Lisinopril (Prinivil) 20 mg PO DAILY [facility] Last Admin: 05/02/19 13:32 Dose: 20 mg Miscellaneous (Lidoderm Patch Removal) 1 each MC DAILY@2200 [facility] Last Admin: 05/01/19 22:04 Dose: 1 each Miscellaneous (Duragesic Patch Waste) 1 each TD PRN PRN PRN Reason: WASTE Pantoprazole Sodium (Protonix -) 40 mg PO DAILY [facility] Last Admin: 05/02/19 13:31 Dose: 40 mg Tramadol HCl (Ultram -) 50 mg PO Q6H PRN PRN Reason: PAIN LEVEL 6-10 Last Admin: 05/02/19 18:20 Dose: 50 mg - Objective Vital Signs: Vital Signs Temperature 98.9 F 05/02/19 22:19 Pulse Rate 78 05/02/19 22:19 Respiratory Rate 20 05/02/19 22:19 Blood Pressure 148/70 05/02/19 22:19 O2 Sat by Pulse Oximetry (%) 90 L 05/02/19 11:26 Neck: Yes: WNL, Supple Cardiovascular: Yes: WNL, Regular Rate and Rhythm Respiratory: Yes: WNL, Regular, CTA Bilaterally Gastrointestinal: Yes: WNL, Normal Bowel Sounds, Soft, Abdomen, Obese Labs: CBC, BMP 04/30/19 06:42 04/30/19 06:42 Problem List - Problems (1) Intractable back pain Assessment/Plan: Cont fenatanyl/tramadol/flexeril/lidocaine patch S/P epidural injection Cont PT May need Short term placement for rehab Code(s): M54.9 - DORSALGIA, UNSPECIFIED (2) HTN (hypertension) Assessment/Plan: BP stable Cont asa/lasix Code(s): I10 - ESSENTIAL (PRIMARY) HYPERTENSION (3) Chronic congestive heart failure Assessment/Plan: Cont lasix Code(s): I50.9 - HEART FAILURE, UNSPECIFIED (4) Osteoarthritis Code(s): M19.90 - UNSPECIFIED OSTEOARTHRITIS, UNSPECIFIED SITE
[2019-05-03] MEDS: CYCLOBENZAPRINE HCL 5 MG TABLET PO SCH ×3 (06:51→22:07)
[2019-05-03] MEDS: ESCITALOPRAM OXALATE 10 MG TABLET (FP) PO SCH (09:15)
[2019-05-03] MEDS: ASPIRIN COATED 81 MG TABLET.EC PO SCH (09:15)
[2019-05-03] MEDS: HEPARIN NA (PORCINE) 5,000 UNITS/ML 1ML VIAL SQ SCH ×2 (09:15→22:07)
[2019-05-03] MEDS: LIDOCAINE 5% TOPICAL PATCH TP SCH (09:16)
[2019-05-03] MEDS: FUROSEMIDE 40 MG TABLET (FP) PO SCH (09:16)
[2019-05-03] MEDS: PANTOPRAZOLE 40 MG TABLET (FP) PO SCH (09:16)
[2019-05-03] MEDS: traMADol HCL 50 MG TABLET PO PRN (09:16)
[2019-05-03] MEDS: LISINOPRIL 20 MG TABLET (FP) PO SCH (09:17)
[2019-05-03] MEDS ORDERED: KETOROLAC TROMETHAMINE 15 MG/ML VIAL IM ONE (15:45)
[2019-05-03] MEDS: fentaNYL 25mcg/hr PATCH.TD72 TD SCH (16:09)
[2019-05-03] MEDS ORDERED: LIDOCAINE HCL 2% (20ML MULTI-DOSE VIAL) INF ONE (18:30)
[2019-05-03] MEDS: LIDOCAINE PATCH REMOVAL MC SCH (22:08)
--- NOTE | 2019-05-03 23:30 | PN ---
Progress Note, Physician History of Present Illness: Pt tolerated procedure - Current Medication List Current Medications: Active Medications Aspirin (Ecotrin -) 81 mg PO DAILY [facility] Last Admin: 05/03/19 09:15 Dose: 81 mg Cyclobenzaprine HCl (Cyclobenzaprine Hcl) 5 mg PO TID [facility] Last Admin: 05/03/19 22:07 Dose: 5 mg Escitalopram Oxalate (Lexapro -) 5 mg PO DAILY [facility] Last Admin: 05/03/19 09:15 Dose: 5 mg Fentanyl (Duragesic 25mcg Patch -) 1 patch TD Q72H [facility] Last Admin: 05/03/19 16:09 Dose: 1 patch Furosemide (Lasix -) 40 mg PO DAILY [facility] Last Admin: 05/03/19 09:16 Dose: 40 mg Heparin Sodium (Porcine) (Heparin -) 5,000 unit SQ BID [facility] Last Admin: 05/03/19 22:07 Dose: 5,000 unit Lidocaine (Lidoderm Patch -) 1 patch TP DAILY [facility] Last Admin: 05/03/19 09:16 Dose: 1 patch Lisinopril (Prinivil) 20 mg PO DAILY [facility] Last Admin: 05/03/19 09:17 Dose: 20 mg Miscellaneous (Lidoderm Patch Removal) 1 each MC DAILY@2200 [facility] Last Admin: 05/03/19 22:08 Dose: 1 each Miscellaneous (Duragesic Patch Waste) 1 each TD PRN PRN PRN Reason: WASTE Last Admin: 05/03/19 16:20 Dose: 1 each Pantoprazole Sodium (Protonix -) 40 mg PO DAILY [facility] Last Admin: 05/03/19 09:16 Dose: 40 mg - Objective Vital Signs: Vital Signs Temperature 98.2 F 05/03/19 23:24 Pulse Rate 80 05/03/19 23:24 Respiratory Rate 20 05/03/19 23:24 Blood Pressure 144/79 05/03/19 23:24 O2 Sat by Pulse Oximetry (%) 95 05/03/19 09:00 Constitutional: Yes: Obese Neck: Yes: WNL, Supple Cardiovascular: Yes: WNL, Regular Rate and Rhythm Respiratory: Yes: WNL, Regular, CTA Bilaterally Gastrointestinal: Yes: WNL, Normal Bowel Sounds, Soft, Abdomen, Obese, Other ((+ ) colostomy) Edema: No Labs: CBC, BMP 04/30/19 06:42 04/30/19 06:42 Problem List - Problems (1) Intractable back pain Assessment/Plan: S/P epidural injection Cont fentanyl/lidocaine/tramadol/flexerilCont pain meds PT eval Code(s): M54.9 - DORSALGIA, UNSPECIFIED (2) HTN (hypertension) Assessment/Plan: BP stable Cont asa/lasix Code(s): I10 - ESSENTIAL (PRIMARY) HYPERTENSION (3) Chronic congestive heart failure Assessment/Plan: Cont lasix Code(s): I50.9 - HEART FAILURE, UNSPECIFIED (4) Osteoarthritis Code(s): M19.90 - UNSPECIFIED OSTEOARTHRITIS, UNSPECIFIED SITE (5) Degenerative lumbar spinal stenosis Code(s): M48.061 - SPINAL STENOSIS, LUMBAR REGION WITHOUT NEUROGENIC MATEO (6) GERD (gastroesophageal reflux disease) Assessment/Plan: Cont protonix Code(s): K21.9 - GASTRO-ESOPHAGEAL REFLUX DISEASE WITHOUT ESOPHAGITIS (7) CAD (coronary artery disease) Code(s): I25.10 - ATHSCL HEART DISEASE OF [place] CORONARY ARTERY W/O ANG PCTRS
[2019-05-04] MEDS: CYCLOBENZAPRINE HCL 5 MG TABLET PO SCH ×4 (06:20→21:23)
[2019-05-04 08:20] LABS: BASO % 0.1 % (0-2.0); EOS % 0.1 % (0-4.5); HEMATOCRIT 35.3 % (32.4-45.2); HEMOGLOBIN 12.3 GM/dL (10.7-15.3); LYMPH % 16.1 % (8-40); MCHC 34.7 g/dl (32.0-36.0); MEAN CELL VOLUME 83.5 fl (80-96); MEAN PLT VOLUME 8.4 fl (7.5-11.1); NEUT % 77.7 % (42.8-82.8); PLATELET COUNT 235 K/MM3 (134-434); RBC 4.23 M/mm3 (3.60-5.2); RDW 14.6 % (11.6-15.6); WHITE BLOOD COUNT 10.6 K/mm3 (4.0-10.0)
[2019-05-04 08:35] LABS: ALBUMIN 2.9 g/dl (3.4-5.0); BILIRUBIN,TOTAL 0.4 mg/dL (0.2-1); BLOOD UREA NITROGEN 56.1 mg/dL (7-18); CALCIUM 8.2 mg/dL (8.5-10.1); CREATININE 1.4 mg/dL (0.55-1.3); TOT PROT 6.5 g/dl (6.4-8.2)
[2019-05-04] MEDS: LISINOPRIL 20 MG TABLET (FP) PO SCH (10:09)
[2019-05-04] MEDS: ESCITALOPRAM OXALATE 10 MG TABLET (FP) PO SCH (10:09)
[2019-05-04] MEDS: FUROSEMIDE 40 MG TABLET (FP) PO SCH (10:09)
[2019-05-04] MEDS: ASPIRIN COATED 81 MG TABLET.EC PO SCH (10:09)
[2019-05-04] MEDS: HEPARIN NA (PORCINE) 5,000 UNITS/ML 1ML VIAL SQ SCH ×2 (10:10→21:23)
[2019-05-04] MEDS: LIDOCAINE 5% TOPICAL PATCH TP SCH (10:10)
[2019-05-04] MEDS: PANTOPRAZOLE 40 MG TABLET (FP) PO SCH (10:10)
--- NOTE | 2019-05-04 17:18 | PN ---
Progress Note (short form) - Note Progress Note: Pt seen and examined. In summary she is an 88 ear old female patient with a long history of intractable low back pain, with a recent excacerbation of the pain. No recent changes in her bowel or bladder habits. She is now being seen by Dr Gates, Pain Management, who gave her a lumbar epidural yesterday. She states she does feel a little better. Limited PE Overweight female. B/L LE are grossly NVI. Good active ROM at both hips, knees, feet, ankles, all toes. + pain with any motion of her LS spine, but in NAD. X-rays Show no acute bony pathology, + multilevel OA and central canal stenosis. CT Scan Confirms these radiographic findings. Pelvis shows no acute pathology, + OA both hips. Imp 88 yo F with [id number] intractable LBP, 1 day s/p lumbar epidural. Rec Con't under the care of Dr Gates P.T. if tolerated, WBAT, activities as tolerated. NTD orthopedically at this time.
[2019-05-04] MEDS: LIDOCAINE PATCH REMOVAL MC SCH (21:24)
--- NOTE | 2019-05-04 22:18 | PN ---
Progress Note, Physician History of Present Illness: Some improvement in lower back pain - Current Medication List Current Medications: Active Medications Aspirin (Ecotrin -) 81 mg PO DAILY [facility] Last Admin: 05/04/19 10:09 Dose: 81 mg Cyclobenzaprine HCl (Cyclobenzaprine Hcl) 5 mg PO TID [facility] Last Admin: 05/04/19 21:23 Dose: 5 mg Escitalopram Oxalate (Lexapro -) 5 mg PO DAILY [facility] Last Admin: 05/04/19 10:09 Dose: 5 mg Fentanyl (Duragesic 25mcg Patch -) 1 patch TD Q72H [facility] Last Admin: 05/03/19 16:09 Dose: 1 patch Furosemide (Lasix -) 40 mg PO DAILY [facility] Last Admin: 05/04/19 10:09 Dose: 40 mg Heparin Sodium (Porcine) (Heparin -) 5,000 unit SQ BID [facility] Last Admin: 05/04/19 21:23 Dose: 5,000 unit Lidocaine (Lidoderm Patch -) 1 patch TP DAILY [facility] Last Admin: 05/04/19 10:10 Dose: 1 patch Lisinopril (Prinivil) 20 mg PO DAILY [facility] Last Admin: 05/04/19 10:09 Dose: 20 mg Miscellaneous (Lidoderm Patch Removal) 1 each MC DAILY@2200 [facility] Last Admin: 05/04/19 21:24 Dose: 1 each Miscellaneous (Duragesic Patch Waste) 1 each TD PRN PRN PRN Reason: WASTE Last Admin: 05/03/19 16:20 Dose: 1 each Pantoprazole Sodium (Protonix -) 40 mg PO DAILY [facility] Last Admin: 05/04/19 10:10 Dose: 40 mg Tramadol HCl (Ultram -) 50 mg PO Q6H PRN PRN Reason: PAIN 6-10 - Objective Vital Signs: Vital Signs Temperature 97.7 F 05/04/19 22:02 Pulse Rate 61 05/04/19 22:02 Respiratory Rate 16 05/04/19 22:02 Blood Pressure 148/71 05/04/19 22:02 O2 Sat by Pulse Oximetry (%) 95 05/04/19 21:00 Neck: Yes: WNL, Supple Cardiovascular: Yes: WNL, Regular Rate and Rhythm Respiratory: Yes: WNL, Regular, CTA Bilaterally Gastrointestinal: Yes: WNL, Normal Bowel Sounds, Soft, Abdomen, Obese, Other ((+ ) colostomy) Edema: No Labs: CBC, BMP 05/04/19 07:09 05/04/19 07:09 Problem List - Problems (1) Intractable back pain Assessment/Plan: S/P epidural injection Cont fentanyl/lidocaine/tramadol/flexerilCont pain meds Spoke to pt at length about dc planning ?STR vs home w/ assistance Pt to think aobut it PT eval Code(s): M54.9 - DORSALGIA, UNSPECIFIED (2) HTN (hypertension) Assessment/Plan: BP stable Cont asa/lasix Code(s): I10 - ESSENTIAL (PRIMARY) HYPERTENSION (3) Chronic congestive heart failure Assessment/Plan: Cont lasix Code(s): I50.9 - HEART FAILURE, UNSPECIFIED (4) Osteoarthritis Code(s): M19.90 - UNSPECIFIED OSTEOARTHRITIS, UNSPECIFIED SITE (5) CAD (coronary artery disease) Code(s): I25.10 - ATHSCL HEART DISEASE OF [place] CORONARY ARTERY W/O ANG PCTRS (6) Degenerative lumbar spinal stenosis Code(s): M48.061 - SPINAL STENOSIS, LUMBAR REGION WITHOUT NEUROGENIC MATEO (7) GERD (gastroesophageal reflux disease) Assessment/Plan: Cont protonix Code(s): K21.9 - GASTRO-ESOPHAGEAL REFLUX DISEASE WITHOUT ESOPHAGITIS
[2019-05-05] MEDS: CYCLOBENZAPRINE HCL 5 MG TABLET PO SCH ×3 (06:48→21:31)
[2019-05-05] MEDS: traMADol HCL 50 MG TABLET PO PRN ×2 (08:26→17:36)
[2019-05-05] MEDS: PANTOPRAZOLE 40 MG TABLET (FP) PO SCH (09:53)
[2019-05-05] MEDS: LISINOPRIL 20 MG TABLET (FP) PO SCH (09:53)
[2019-05-05] MEDS: FUROSEMIDE 40 MG TABLET (FP) PO SCH (09:53)
[2019-05-05] MEDS: ESCITALOPRAM OXALATE 10 MG TABLET (FP) PO SCH (09:53)
[2019-05-05] MEDS: ASPIRIN COATED 81 MG TABLET.EC PO SCH (09:53)
[2019-05-05] MEDS: LIDOCAINE 5% TOPICAL PATCH TP SCH (09:53)
[2019-05-05] MEDS: HEPARIN NA (PORCINE) 5,000 UNITS/ML 1ML VIAL SQ SCH ×2 (09:53→21:31)
[2019-05-05] MEDS ORDERED: ACETAMINOPHEN 325 MG TABLET (FP) PO ONE (13:15)
--- NOTE | 2019-05-05 17:10 | PN ---
Progress Note, Physician History of Present Illness: Pt having increase pain today mostly on rt side of lower back - Current Medication List Current Medications: Active Medications Aspirin (Ecotrin -) 81 mg PO DAILY [facility] Last Admin: 05/05/19 09:53 Dose: 81 mg Cyclobenzaprine HCl (Cyclobenzaprine Hcl) 5 mg PO TID [facility] Last Admin: 05/05/19 13:37 Dose: Not Given Escitalopram Oxalate (Lexapro -) 5 mg PO DAILY [facility] Last Admin: 05/05/19 09:53 Dose: 5 mg Fentanyl (Duragesic 25mcg Patch -) 1 patch TD Q72H [facility] Last Admin: 05/03/19 16:09 Dose: 1 patch Furosemide (Lasix -) 40 mg PO DAILY [facility] Last Admin: 05/05/19 09:53 Dose: 40 mg Heparin Sodium (Porcine) (Heparin -) 5,000 unit SQ BID [facility] Last Admin: 05/05/19 09:53 Dose: 5,000 unit Lidocaine (Lidoderm Patch -) 1 patch TP DAILY [facility] Last Admin: 05/05/19 09:53 Dose: 1 patch Lisinopril (Prinivil) 20 mg PO DAILY [facility] Last Admin: 05/05/19 09:53 Dose: 20 mg Miscellaneous (Lidoderm Patch Removal) 1 each MC DAILY@2200 [facility] Last Admin: 05/04/19 21:24 Dose: 1 each Miscellaneous (Duragesic Patch Waste) 1 each TD PRN PRN PRN Reason: WASTE Last Admin: 05/03/19 16:20 Dose: 1 each Pantoprazole Sodium (Protonix -) 40 mg PO DAILY [facility] Last Admin: 05/05/19 09:53 Dose: 40 mg Tramadol HCl (Ultram -) 50 mg PO Q6H PRN PRN Reason: PAIN 6-10 Last Admin: 05/05/19 08:26 Dose: 50 mg - Objective Vital Signs: Vital Signs Temperature 98.6 F 05/05/19 15:37 Pulse Rate 82 05/05/19 15:37 Respiratory Rate 20 05/05/19 15:37 Blood Pressure 148/74 05/05/19 15:37 O2 Sat by Pulse Oximetry (%) 95 05/05/19 09:00 Constitutional: Yes: Obese Neck: Yes: WNL, Supple Cardiovascular: Yes: WNL, Regular Rate and Rhythm Respiratory: Yes: WNL, Regular, CTA Bilaterally Gastrointestinal: Yes: WNL, Normal Bowel Sounds, Soft, Abdomen, Obese, Other ((+ ) colostomy) Edema: No Labs: CBC, BMP 05/04/19 07:09 05/04/19 07:09 Problem List - Problems (1) Intractable back pain Assessment/Plan: S/P epidural injection Cont fentanyl/lidocaine/tramadol/flexeril Spoke to pt at length about dc planning ?STR vs home w/ assistance and pt has agreed to STR DC planning to rehab in am PT eval Code(s): M54.9 - DORSALGIA, UNSPECIFIED (2) HTN (hypertension) Assessment/Plan: BP stable Cont asa/lasix Code(s): I10 - ESSENTIAL (PRIMARY) HYPERTENSION (3) Chronic congestive heart failure Assessment/Plan: Cont lasix Code(s): I50.9 - HEART FAILURE, UNSPECIFIED (4) Osteoarthritis Code(s): M19.90 - UNSPECIFIED OSTEOARTHRITIS, UNSPECIFIED SITE (5) CAD (coronary artery disease) Code(s): I25.10 - ATHSCL HEART DISEASE OF [place] CORONARY ARTERY W/O ANG PCTRS (6) Degenerative lumbar spinal stenosis Code(s): M48.061 - SPINAL STENOSIS, LUMBAR REGION WITHOUT NEUROGENIC MATEO (7) GERD (gastroesophageal reflux disease) Assessment/Plan: Cont protonix Code(s): K21.9 - GASTRO-ESOPHAGEAL REFLUX DISEASE WITHOUT ESOPHAGITIS
[2019-05-05] MEDS: LIDOCAINE PATCH REMOVAL MC SCH (21:31)
[2019-05-06] MEDS: CYCLOBENZAPRINE HCL 5 MG TABLET PO SCH ×2 (05:59→14:09)
[2019-05-06] MEDS: ESCITALOPRAM OXALATE 10 MG TABLET (FP) PO SCH ×2 (08:16→10:18)
[2019-05-06] MEDS: traMADol HCL 50 MG TABLET PO PRN ×2 (08:17→13:54)
[2019-05-06] MEDS: HEPARIN NA (PORCINE) 5,000 UNITS/ML 1ML VIAL SQ SCH ×2 (08:17→10:18)
[2019-05-06] MEDS: LISINOPRIL 20 MG TABLET (FP) PO SCH ×2 (08:17→10:18)
[2019-05-06] MEDS: FUROSEMIDE 40 MG TABLET (FP) PO SCH ×2 (08:17→10:18)
[2019-05-06] MEDS: PANTOPRAZOLE 40 MG TABLET (FP) PO SCH ×2 (08:17→10:18)
[2019-05-06] MEDS: LIDOCAINE 5% TOPICAL PATCH TP SCH ×2 (08:18→10:18)
[2019-05-06] MEDS: ASPIRIN COATED 81 MG TABLET.EC PO SCH (10:17)
[2019-05-06 15:07] VITALS: BP 117/54; PULSE 81; TEMP 97.8
== END 2019-05-06 17:42 | disposition home health service (06) | DRG 552 ==
LOC: JER 00:11 → JERBED 03:45 → J6S 12:25 → OBSVTOIN 05-02 19:09
PROVIDERS: ADMIT Internal Medicine; ATTEND Internal Medicine
PROC: 3E0S33Z Introduction of Anti-inflammatory into Epidural Space, Percutaneous Approach (ICD-10-PCS; principal; 2019-05-01)
PROC: 3E0S3BZ Introduction of Anesthetic Agent into Epidural Space, Percutaneous Approach (ICD-10-PCS; 2019-05-01)
DX: M51.16 Intervertebral disc disorders with radiculopathy, lumbar region (principal); M48.07 Spinal stenosis, lumbosacral region; M51.26 Other intervertebral disc displacement, lumbar region; M54.5 Low back pain; M16.11 Unilateral primary osteoarthritis, right hip; K21.9 Gastro-esophageal reflux disease without esophagitis; I25.10 Atherosclerotic heart disease of native coronary artery without angina pectoris; I11.0 Hypertensive heart disease with heart failure; I50.9 Heart failure, unspecified; E66.3 Overweight; Z68.35 Body mass index [BMI] 35.0-35.9, adult; M47.896 Other spondylosis, lumbar region; M43.16 Spondylolisthesis, lumbar region; Z93.3 Colostomy status; Z95.5 Presence of coronary angioplasty implant and graft
CPT/HCPCS: 36415; 72131-TC; 72170-TC-FY; 72192-TC; 76000-TC-FY; 80053; 85025; 93005; 93010; 97116-GP; 97162-GP; 99285-25; G0378; J1644